=== PATIENT | female | born 1975 | race Caucasian/White ===

== ENCOUNTER → 2017-10-02 10:21 | Outpatient (CLI) | payer OTHER, SELFPAY ==
[2017-10-02 09:58] VITALS: BP 126/82; BMI 29.2
--- NOTE | 2017-10-02 10:28 | RAD_ITS ---
STUDY: X-RAY - RIGHT ANKLE REASON FOR EXAM: Female, 42 years old. Pain following injury. TECHNIQUE: 3 view(s) of the ankle. COMPARISON: Comparison is made with prior study dated September 05, 2017. FINDINGS: Normal visualized distal tibia and fibula. Normal medial and lateral malleoli. Normal tibiotalar articulation and ankle mortise. Normal visualized talus and calcaneus. The visualized subtalar, talonavicular, calcaneocuboid and tarsal articulations are normal. Lateral soft tissue swelling. RAD/Ankle min 3 Views IMPRESSION: Lateral soft tissue swelling. Electronically Signed: Srinivasa Tomas MD at 15:34 EST Tel [phone], Service support ,
== END ==
PROVIDERS: Family Provider Internal Medicine; PCP Internal Medicine; Visit Provider Physician Assistant Surgical
DX: S93.401A Sprain of unspecified ligament of right ankle, initial encounter (principal); X58.XXXA Exposure to other specified factors, initial encounter
CPT/HCPCS: 73610

== ENCOUNTER 2018-08-07 09:21 | Emergency (ER) | payer BC, SELFPAY ==
[2017-10-02 09:58] VITALS: BMI 29.2
[2018-08-07 09:22] VITALS: BP 126/82; PULSE 81; RESP 16; TEMP 36.4; O2SAT 100; BMI 29.6
--- NOTE | 2018-08-07 09:36 | CT_ITS ---
STUDY: CT BRAIN WITHOUT CONTRAST REASON FOR EXAM: Female, 43 years old. History of fall. History of prior brain surgery for AVM repair. RADIATION DOSAGE (If Supplied By Facility): CTDIvol = ( 44.99 ) mGy, DLP = ( 745.49 ) mGycm TECHNIQUE: Transaxial CT imaging of the brain was performed without administration of intravenous contrast material. Individualized dose optimization techniques were used for this CT. COMPARISON: None. FINDINGS: Normal soft tissue structures. The patient is status post right temporoparietal craniotomy. Normal size ventricles and extra-axial spaces for the patient's age. Focal encephalomalacia is seen in the right temporal parietal lobe in keeping with history of prior surgery. Normal basal ganglia and thalami. Normal brainstem. Normal cerebellum. There is no intracranial hemorrhage. There are no findings of an acute ischemic infarction. Normal visualized paranasal sinuses. CT/Brain/Head without Contrast IMPRESSION: Status post right temporoparietal craniotomy with evidence of encephalomalacia at the operative site. No acute abnormality is seen. Electronically Signed: Srinivasa Tomas MD at 10:22 EST Tel [phone], Service support ,
--- NOTE | 2018-08-07 09:38 | ED.VISSUMM ---
- ER Visit Summary Date of Service: 08/07/18 Chief Complaint: [] Fall about 4 days ago persistent headache History of Present Illness: The patient is a 43 F [] she reports she inadvertently slipped and fell struck the back of her head about 4 5 days ago she had a sense of being days no obvious LOC, no change in vision no neck pain chest pain abdominal pain #6 paresthesias This persisted having pain to the back of her head and a mild headache, she has a prior history for [employer] AVM surgery and clipping years ago she is concerned about all the above she otherwise has no complaints Physical Examination: [] 130/80 afebrile General, no distress resting comfortably HEENT is generally unremarkable The neck is supple no adenopathy Cardiovascular, regular rate and rhythm Lungs, clear bilateral Abdomen, soft nontender Extremities, no clubbing cyanosis or edema Neurologic, awake alert answering questions appropriately moving all 4 extremities Long conversation with the patient she has this persistent headache since the fall a few days ago her prior [employer] surgery, given all of that CT head is obtained she does not wish any for pain Test Results: [] Emergency Department Course and Treatment: [] CT is negative for anything acute please see that report this time she will follow-up with her doctors and return for change in symptoms Treatment Plan: [] Disposition: [] Home stable Impression: [] Fall with persistent headache This note was generated with [employer] dictation software. It may contain incorrect words, spelling, and punctuation that were not noted in review of the chart prior to signing ED Disposition - Plan for ED Patient: Chief Complaint: Head Injury Referrals: Nika Hernandez MD [Primary Care Provider] -
--- NOTE | 2018-08-07 10:25 | ED.DEP ---
ED Disposition - Plan for ED Patient: Chief Complaint: Head Injury Instructions: ED Concussion, ED Head Injury Closed Referrals: Nika eHrnandez MD [Primary Care Provider] - Ronnie Vasquez MD [STAFF PHYSICIAN] -
[2018-08-07 11:04] VITALS: BP 122/74; PULSE 61; RESP 14; O2SAT 100
--- OUTSIDE RECORDS SUMMARY | 2018-09-23 12:00 | XMS RPT_ITS ---
:1975 Author Organization OHIP Care Team Providers Name Role Phone ARMANDO ROJAS ([facility]) Attending Unavailable ARMANDO ROJAS ([facility]) Attending Unavailable ARMANDO ROJAS ([facility]) Referring Unavailable DmitryJaneth Attending Unavailable DmitryJaneth sainz Attending Unavailable DmitryJaneth Attending Unavailable Ganta, Nika Primary Care Unavailable Barb Carbajal Attending Unavailable Mario Matos Attending Unavailable Ganta, Nika Referring Unavailable Ganta, Nika Primary Care Unavailable Mario Matos Attending Unavailable Ganta, Nika Primary Care Unavailable PROBLEMS PROBLEMS DATE TYPE CONDITION / CODE ATTENDING STATUS SOURCE 10/23/2017 Unknown S93.401A - Sprain Mario Matos Active [facility] of unspecified Community ligament of right Hospital ankle, initial Repository encounter / S93.401A(ICD-10) 09/24/2017 Active Unknown / ARMANDO ROJAS Active [facility] UNK(Unknown) ([facility]) Main [place] Repository PROCEDURES PROCEDURES No Procedure Records FoundRESULTS RESULTS EMERGENCY DEPARTMENT Observed: 08/07/2018 Status: F Source: [place] SUMMARY 5:10 PM [facility] HOSPITAL REPOSITORY [facility] Medical Records Department [address] [facility] [place] [address] Emergency Department Summary 08/07/18 0938 MR#: [id number] Acct: [id number] Name: LORNA VASQUEZ Rep #: [id number] : 1975 43 From: Barb Carbajal MD PCP: Ganta MD,Nika Status: DEP ER - ER Visit Summary Date of Service: 08/07/18 Chief Complaint: [] Fall about 4 days ago persistent headache History of Present Illness: The patient is a 43 F [] she reports she inadvertently slipped and fell struck the back of her head about 4 5 days ago she had a sense of being days no obvious LOC, no change in vision no neck pain chest pain abdominal pain #6 paresthesias This persisted having pain to the back of her head and a mild headache, she has a prior history for [employer] AVM surgery and clipping years ago she is concerned about all the above she otherwise has no complaints Physical Examination: [] 130/80 afebrile General, no distress resting comfortably HEENT is generally unremarkable The neck is supple no adenopathy Cardiovascular, regular rate and rhythm Lungs, clear bilateral Abdomen, soft nontender Extremities, no clubbing cyanosis or edema Neurologic, awake alert answering questions appropriately moving all 4 extremities Long conversation with the patient she has this persistent headache since the fall a few days ago her prior [employer] surgery, given all of that CT head is obtained she does not wish any for pain Test Results: [] Emergency Department Course and Treatment: [] CT is negative for anything acute please see that report this time she will follow-up with her doctors and return for change in symptoms Treatment Plan: [] Disposition: [] Home stable Impression: [] Fall with persistent headache This note was generated with [place] [employer] dictation software. It may contain incorrect words, spelling, and punctuation that were not noted in review of the chart prior to signing ED Disposition - Plan for ED Patient: Chief Complaint: Head Injury Referrals: Nika Hernandez MD [Primary Care Provider] - What to do if you have Problems For any increased pain, shortness of breath, bleeding, nausea or vomiting, chest pain, or any unexpected problems, contact your Primary Care Provider. Call [facility] ([phone]) or report to the closest Emergency Room. Call 911 if necessary. 08/07/18 1710 <Electronically signed by Barb Carbajal MD> Date Barb Carbajal MD Cosigner Signature (If Indicated): Date CC: Nika Hernandez MD DISCHARGE INSTRUCTION Observed: 08/07/2018 Status: F Source: [place] 10:[address] [facility] Medical Records Department [address] [place] [address] Discharge Instruction 08/07/18 1025 MR#: [id number] Acct: [id number] Name: LORNA VASQUEZ Rep #: [id number] : 1975 43 From: Barb Carbajal MD PCP: Nika Hernandez MD Status: REG ER ED Disposition - Plan for ED Patient: Chief Complaint: Head Injury Instructions: ED Concussion, ED Head Injury Closed Referrals: Nika Hernandez MD [Primary Care Provider] - Ronnie Vasquez MD [STAFF PHYSICIAN] - What to do if you have Problems For any increased pain, shortness of breath, bleeding, nausea or vomiting, chest pain, or any unexpected problems, contact your Primary Care Provider. Call [facility] ([phone]) or report to the closest Emergency Room. Call 911 if necessary. 08/07/18 1026 <Electronically signed by Barb Carbajal MD> Date Barb Carbajal MD Cosigner Signature (If Indicated): Date CC: Nika Hernandez MD BRAIN/HEAD WITHOUT Observed: 08/07/2018 Status: F Source: [place] CONTRAST 9:[address] [facility] Imaging Services [address] [place] [address] Brain/Head without Contrast MR#: [id number] Acct: [id number] Name: LORNA VASQUEZ Rep #: [id number] : 1975 F 43 From: Srinivasa Tomas MD PCP: Nika Hernandez MD Status: REG ER Study: Brain/Head without Contrast Date of Exam: 08/07/18 Exam# [id number] Ordering Dr: Barb Carbajal MD STUDY: CT BRAIN WITHOUT CONTRAST REASON FOR EXAM: Female, 43 years old. History of fall. History of prior brain surgery for AVM repair. RADIATION DOSAGE (If Supplied By Facility): CTDIvol = ( 44.99 ) mGy, DLP = ( 745.49 ) mGycm TECHNIQUE: Transaxial CT imaging of the brain was performed without administration of intravenous contrast material. Individualized dose optimization techniques were used for this CT. COMPARISON: None. FINDINGS: Normal soft tissue structures. The patient is status post right temporoparietal craniotomy. Normal size ventricles and extra-axial spaces for the patient's age. Focal encephalomalacia is seen in the right temporal parietal lobe in keeping with history of prior surgery. Normal basal ganglia and thalami. Normal brainstem. Normal cerebellum. There is no intracranial hemorrhage. There are no findings of an acute ischemic infarction. Normal visualized paranasal sinuses. CT/Brain/Head without Contrast IMPRESSION: Status post right temporoparietal craniotomy with evidence of encephalomalacia at the operative site. No acute abnormality is seen. Electronically Signed: Srinivasa Tomas MD at 10:22 EST Tel [phone], Service support , CC: MD Beti Carbajal; Nika Hernandez MD Logistic Specialist: Signed PROGRESS Observed: 03/15/2018 Status: COMPLETED Source: [place] 10:13 AM [facility] [place] REPOSITORY HNO ID: [id number] Author: Armando Rojas Service: (none) Author Type: Nurse Practitioner Type: Progress Notes Filed: 03/15/2018 11:13 AM Note Text: CC: Patient presents with: Recheck: Medication follow up HPI Lorna VASQUEZ is a 42 year old female who presents today for review of medical conditions and medication refills. Depression: Patient reports doing well on current dose of Effexor without side effects. Reports mood is stable. Denies any depressed mood, changes in sleep or appetite or SI/HI. Seizures: Long-term management with Dilantin. No recent seizure activity. Bug bite? Noted near umbilicus 4x days ago. Reports mild erythema and ittching. Reports possible fever, not measured with associated URI symptoms including sinus congestion and rhinorrhea. Denies any warmth or drainage from site. Also notes possible ingrown hair to right groin for the same duration, reports mild discomfort and erythema. REVIEW OF SYSTEMS General: no fevers, no chills, no night sweats, no change in appetite, no change in energy and no significant changes in weight Skin: See HPI HEENT: no frequent or significant headaches, no changes in hearing, no nose bleeds, no sinus or nasal problems Neck: no pain and no swelling Respiratory: no cough, no wheezing, no shortness of breath, no hemoptysis Cardiovascular: no chest pain, no chest pressure, no palpitations and no swelling GI: No nausea, vomiting, or diarrhea : No history of dysuria, frequency or incontinence Endocrine: no fatigue, no weight gain, no weight loss, no hair loss, no dry skin, no cold intolerance, no heat intolerance, no neck pain/pressure, no polyuria, no polyphagia and no polydipsia Neurologic: No headache, weakness, numbness, tingling, neck stiffness, tremor, vertigo, dizziness, memory loss, syncope. PAST MEDICAL HISTORY Diagnosis Date - AVM (arteriovenous malformation) brain - Seizure (HCC) PAST SURGICAL HISTORY Procedure Laterality Date - BRAIN SURGERY HX AVM - TONSILLECTOMY HX ALLERGIES Patient has no known allergies. MEDICATIONS venlafaxine ER (EFFEXOR XR) 75 mg 24 hr capsule Take 1 capsule by mouth once daily. Needs appointment for further refills Ayftkwsrqsmwscx-Ptabgkglf-SX (BROMFED DM) 2-30-10 mg/5 mL syrup Take 5 mL by mouth four times daily as needed. phenytoin ER (DILANTIN) 100 mg ER capsule Take 4 capsules by mouth once daily. venlafaxine XR (EFFEXOR XR) 150 mg 24 hr capsule Take 1 capsule by mouth once daily. FAMILY HISTORY Problem Relation Age of Onset - Heart Paternal Grandmother - Ischemic Heart Disease Maternal Grandfather - Heart Maternal Grandmother - Prostate Cancer Paternal Grandfather Social History Substance Use Topics - Smoking status: Never Smoker - Smokeless tobacco: Never Used - Alcohol use No PHYSICAL EXAM BP 118/78 Pulse 90 Temp 36.8 ?C (98.3 ?F) (Temporal Artery) Resp 16 Wt 86.2 kg (190 lb) SpO2 100% BMI 29.76 kg/m? General Appearance: well appearing, in no acute distress, alert Pysch: mood and affect broad and appropriate Skin: right groin: follicular erythema with mild ecchymosis. Mild tenderness noted. No fluctuance or active drainage Abdomen: x2 erythematous papules proximal to the umbilicus. No drainage or evidence of infection Head: normocephalic, atraumatic Eyes: conjunctiva pink and moist, no icterus, sclera white, non-injected Ears: external ears normal to inspection and palpation, canals clear, R TM: serous effusion, L TM: serous effusion Oropharynx: Positive for mild oropharyngeal erythema Lungs: Lungs clear to auscultation. No wheezing, rhonchi, rales Heart: RRR without murmur, gallop, or rubs. No ectopy Bilateral Lower Extremities: No deformities, edema, skin discoloration, clubbing or cyanosis. Good capillary refill. , Pulses: 2+ DTAP,TDAP,TD(1 - Tdap) due on 1992 MAMMOGRAM due on 11/03/2016 INFLUENZA(1) due on 04/27/2018 PAP EVERY 5 YEARS due on 04/08/2019 HPV EVERY 5 YEARS due on 04/08/2019 ASSESSMENT/PLAN: 1. Recurrent major depression in partial remission (HCC) - ICD9: 296.35, ICD10: F33.41 (primary diagnosis) - Stable - Continue Effexor - Follow up in 1 year, sooner for new or worsening symptoms 2. Seizures (HCC) - ICD9: 780.39, ICD10: R56.9 - Stable - PHENYTOIN/DILANTIN - COMP METABOLIC PANEL - Follow up in 1 year, sooner for new or worsening symptoms 3. Folliculitis - ICD9: 704.8, ICD10: L73.9 - SULFAMETHOXAZOLE 800 MG-TRIMETHOPRIM 160 MG TABLET 4. Insect bite, initial encounter - ICD9: 919.4, E906.4, ICD10: W57.XXXA - SULFAMETHOXAZOLE 800 MG-TRIMETHOPRIM 160 MG TABLET 5. Screening mammogram, encounter for - ICD9: V76.12, ICD10: Z12.31 - Encouraged monthly BSE - Follow up for annual exam in one year. - [facility] SCREEN[facility] Armando Rojas APRN.CNP Prescription instructions reviewed with patient as applicable. Potential red flag symptoms discussed with the patient. Reviewed appropriate action plan to take if red flag symptoms occur. Patient agreeable to treatment plan. CNOV Observed: 03/15/2018 Status: COMPLETED Source: [place] 10:00 AM [facility] REPOSITORY Office Visit (INTMWS) LORNA VASQUEZ ([id number]) 1975 F [facility] Date Time Provider Department 03/15/18 10:00 AM ARMANDO ROJAS ([facility]) INTMWS During your visit today, we recorded the following information about you: Temperature Pulse Respiration Blood pressure 98.3 degrees 90/minute 16/minute 118/78 Weight 86.2 kg Armando Rojas APRN.CNP 03/15/2018 11:13 AM Signed CC: Patient presents with: Recheck: Medication follow up HPI Lorna WESTChel is a 42 year old female who presents today for review of medical conditions and medication refills. Depression: Patient reports doing well on current dose of Effexor without side effects. Reports mood is stable. Denies any depressed mood, changes in sleep or appetite or SI/HI. Seizures: Long-term management with Dilantin. No recent seizure activity. Bug bite? Noted near umbilicus 4x days ago. Reports mild erythema and ittching. Reports possible fever, not measured with associated URI symptoms including sinus congestion and rhinorrhea. Denies any warmth or drainage from site. Also notes possible ingrown hair to right groin for the same duration, reports mild discomfort and erythema. REVIEW OF SYSTEMS General: no fevers, no chills, no night sweats, no change in appetite, no change in energy and no significant changes in weight Skin: See HPI HEENT: no frequent or significant headaches, no changes in hearing, no nose bleeds, no sinus or nasal problems Neck: no pain and no swelling Respiratory: no cough, no wheezing, no shortness of breath, no hemoptysis Cardiovascular: no chest pain, no chest pressure, no palpitations and no swelling GI: No nausea, vomiting, or diarrhea : No history of dysuria, frequency or incontinence Endocrine: no fatigue, no weight gain, no weight loss, no hair loss, no dry skin, no cold intolerance, no heat intolerance, no neck pain/pressure, no polyuria, no polyphagia and no polydipsia Neurologic: No headache, weakness, numbness, tingling, neck stiffness, tremor, vertigo, dizziness, memory loss, syncope. PAST MEDICAL HISTORY Diagnosis Date - AVM (arteriovenous malformation) brain - Seizure (HCC) PAST SURGICAL HISTORY Procedure Laterality Date - BRAIN SURGERY HX AVM - TONSILLECTOMY HX ALLERGIES Patient has no known allergies. MEDICATIONS venlafaxine ER (EFFEXOR XR) 75 mg 24 hr capsule Take 1 capsule by mouth once daily. Needs appointment for further refills Ojkbctoxiaszpxx-Xlrgicqwj-OU (BROMFED DM) 2-30-10 mg/5 mL syrup Take 5 mL by mouth four times daily as needed. phenytoin ER (DILANTIN) 100 mg ER capsule Take 4 capsules by mouth once daily. venlafaxine XR (EFFEXOR XR) 150 mg 24 hr capsule Take 1 capsule by mouth once daily. FAMILY HISTORY Problem Relation Age of Onset - Heart Paternal Grandmother - Ischemic Heart Disease Maternal Grandfather - Heart Maternal Grandmother - Prostate Cancer Paternal Grandfather Social History Substance Use Topics - Smoking status: Never Smoker - Smokeless tobacco: Never Used - Alcohol use No PHYSICAL EXAM BP 118/78 Pulse 90 Temp 36.8 ?C (98.3 ?F) (Temporal Artery) Resp 16 Wt 86.2 kg (190 lb) SpO2 100% BMI 29.76 kg/m? General Appearance: well appearing, in no acute distress, alert Pysch: mood and affect broad and appropriate Skin: right groin: follicular erythema with mild ecchymosis. Mild tenderness noted. No fluctuance or active drainage Abdomen: x2 erythematous papules proximal to the umbilicus. No drainage or evidence of infection Head: normocephalic, atraumatic Eyes: conjunctiva pink and moist, no icterus, sclera white, non-injected Ears: external ears normal to inspection and palpation, canals clear, R TM: serous effusion, L TM: serous effusion Oropharynx: Positive for mild oropharyngeal erythema Lungs: Lungs clear to auscultation. No wheezing, rhonchi, rales Heart: RRR without murmur, gallop, or rubs. No ectopy Bilateral Lower Extremities: No deformities, edema, skin discoloration, clubbing or cyanosis. Good capillary refill. , Pulses: 2+ DTAP,TDAP,TD(1 - Tdap) due on 1992 MAMMOGRAM due on 11/03/2016 INFLUENZA(1) due on 04/27/2018 PAP EVERY 5 YEARS due on 04/08/2019 HPV EVERY 5 YEARS due on 04/08/2019 ASSESSMENT/PLAN: 1. Recurrent major depression in partial remission (HCC) - ICD9: 296.35, ICD10: F33.41 (primary diagnosis) - Stable - Continue Effexor - Follow up in 1 year, sooner for new or worsening symptoms 2. Seizures (HCC) - ICD9: 780.39, ICD10: R56.9 - Stable - PHENYTOIN/DILANTIN - COMP METABOLIC PANEL - Follow up in 1 year, sooner for new or worsening symptoms 3. Folliculitis - ICD9: 704.8, ICD10: L73.9 - SULFAMETHOXAZOLE 800 MG-TRIMETHOPRIM 160 MG TABLET 4. Insect bite, initial encounter - ICD9: 919.4, E906.4, ICD10: W57.XXXA - SULFAMETHOXAZOLE 800 MG-TRIMETHOPRIM 160 MG TABLET 5. Screening mammogram, encounter for - ICD9: V76.12, ICD10: Z12.31 - Encouraged monthly BSE - Follow up for annual exam in one year. - [facility] SCREENING Armando Rojas APRN.ELECTRICIAN CHIEF Prescription instructions reviewed with patient as applicable. Potential red flag symptoms discussed with the patient. Reviewed appropriate action plan to take if red flag symptoms occur. Patient agreeable to treatment plan. Armando Rojas APRN.ELECTRICIAN CHIEF 03/15/2018 10:33 AM Addendum Okay to apply hydrocortisone cream to bug bite on abdomen may also apply Aquaphor anti-itch. Please remember to schedule annual appointment for 1 year from now. Referring Provider: ARMANDO ROJAS ([facility]) [[id number]] Allergies As of Date: 03/15/2018 (No Known Allergies) Date Reviewed: 03/15/2018 Reviewed by: Hyun Suárez Ma - Fully Assessed Reason for Visit: Recheck [92] Cmt: Medication follow up Primary Visit Diagnosis:Recurrent major depression in partial remission (HCC) [F33.41] Other Visit Diagnoses:Seizures (HCC) [R56.9] Folliculitis [L73.9] Insect bite, initial encounter [W57.XXXA] Screening mammogram, encounter for [Z12.31] Order(s):venlafaxine ER (EFFEXOR XR) 75 mg 24 hr capsuleTake 1 capsule by mouth once daily. Needs appointment for further refillsDisp: 30 capsuleRfl: 5 YARED SCREENING [[id number]] Order #: [id number] FUTURE PHENYTOIN/DILANTIN [SQPHT] Order #: [id number] FUTURE COMP METABOLIC PANEL [SQCMP] Order #: [id number] FUTURE fluticasone (FLONASE) 50 mcg/actuation nasal sprayUse 1-2 Sprays in each nostril once daily. Rinse mouth after use.Disp: 1 BottleRfl: 1 sulfamethoxazole-trimethoprim (BACTRIM DS,SEPTRA DS) 800-160 mg per tabletTake 1 tablet by mouth twice daily for 5 days.Disp: 10 tabletRfl: 0 Prescriptions as of 03/15/2018 Sig: VENLAFAXINE ER 75 MG CAPSULE,* Take 1 capsule by mouth once * FLUTICASONE 50 MCG/ACTUATION * Use 1-2 Sprays in each nostri* SULFAMETHOXAZOLE 800 MG-TRIME* Take 1 tablet by mouth twice * BROMPHENIRAMINE-PSEUDOEPHEDRI* Take 5 mL by mouth four times* PHENYTOIN SODIUM EXTENDED 100* Take 4 capsules by mouth once* Problem List As Of Date 03/15/2018 Noted Resolved Seizures (HCC) [R56.9] INVALID FOR* More... Recurrent major depression in partial remission*INVALID FOR* More... Attention deficit disorder of adult [F98.8] INVALID FOR* More... Other instructions from your clinician: Okay to apply hydrocortisone cream to bug bite on abdomen may also apply Aquaphor anti-itch. Please remember to schedule annual appointment for 1 year from now. Prescriptions ordered this encounter Disp Refills Start End VENLAFAXINE ER 75 MG CAPSULE,EXTENDE* 30 c* 5 03/15/2018 Route: ORAL Sig: Take 1 capsule by mouth once daily. Needs appointment for further refills FLUTICASONE 50 MCG/ACTUATION NASAL S* 1 Pedro* 1 03/15/2018 Route: EACH NOSTRIL Sig: Use 1-2 Sprays in each nostril once daily. Rinse mouth after use. SULFAMETHOXAZOLE 800 MG-TRIMETHOPRIM* 10 t* 0 03/15/2018 03/20/2018 Route: ORAL Sig: Take 1 tablet by mouth twice daily for 5 days. Medications Discontinued During This Encounter venlafaxine XR (EFFEXOR XR) 150 mg 2* 90 c* 1 11/15/2016 03/15/2018 Route: ORAL Sig: Take 1 capsule by mouth once daily. Disc: Reason for discontinue is not on file. venlafaxine ER (EFFEXOR XR) 75 mg 24* 14 c* 0 03/01/2018 03/15/2018 Route: ORAL Sig: Take 1 capsule by mouth once daily. Needs appointment for further refills Disc: Reason for discontinue is not on file. Encounter Status:Closed by ARMANDO ROJAS CNP on 03/15/18 URGENT CARE VISIT Observed: 10/05/2017 Status: F Source: [place] REPORT 7:25 AM [facility] [place] [address] [place] [id number] OFFICE VISIT Date of Service: 10/02/17 MR#: [id number] Acct: [id number] Name: ELANACHESTERLORNA Milligan Rep #: [id number] : 1975 Provider: Mario CARRANZA Age/Sex: 42/F Location: [email or web address] Status: Signed Intake Vital Signs10/02/17 Height 5 ft 8 in Intake Visit Reasons: RT ANKLE INJURY/ [employer] Allergies No Known Allergies Allergy (Verified 10/02/17 09:51) Medications Phenytoin Na [Dilantin] 400 mg PO DAILY 12/27/15 [History Confirmed 10/02/17] venlafaxine 25 mg tablet 25 mg PO TID 10/02/17 [History Confirmed 10/02/17] PFSH Medical History AVM (arteriovenous malformation) (Acute) Seizures (Acute) Surgical History H/O brain surgery (Acute) Social History Smoking Status: Never smoker alcohol intake: never HPI HPI Details: LORNA VASQUEZ, is a 42 F who presents to the office today for follow-up of a work-related injury which occurred on 09/05/2017. Patient states that on that date she rolled her right ankle after missing a step while at work. She was initially evaluated at [facility] ED and found to have a right ankle sprain. Patient states that she continues to have pain and swelling to the ankle and is concerned that there may be an occult fracture. She does also report that she has not been using the ankle splint that was given to her due to discomfort. She is able to do her job while at work however does have to take breaks intermittently from going up and down stairs due to the discomfort. She denies any numbness or tingling. She continues to have full range of motion and sensation. No other associated symptoms or alleviating/aggravating factors. ROS Const Constitutional: No chills, fever(s), fatigue or abnormal sleep pattern Resp Respiratory: No shortness of breath or chest congestion Cardio Cardiology: No chest pain at rest, chest pain with exertion or shortness of breath Musc Musculoskeletal: Positive for joint pain and joint swelling; no back pain, abnormal walking or limited range of motion Skin Skin: No wounds or lesions Neuro Neurology: No behavioral changes, confusion or abnormal walking Psych Psychiatric: No behavioral changes, No confusion, No abnormal sleep pattern Endo Endocrine: No fatigue Exam Const General: cooperative, healthy appearing [facility] Head: normocephalic, atraumatic Ears: hearing grossly normal bilaterally Face and sinus: face symmetric Eyes General: appearance normal, both eyes and all related structures Pupils: PERRL Resp Effort AND Inspection: normal respiratory effort Auscultation: Bilateral: Clear to Auscultation Cardio Rate: regular rate Rhythm: regular rhythm Heart Sounds: S1 normal, S2 normal Musc Musculoskeletal: Yes joint tenderness Skin General: no rashes or lesions noted Neuro General: alert, oriented x3, CN's II-XI intact bilaterally Motor: muscle tone normal throughout, strength 5/5 throughout Sensory Exam: no sensory deficits noted Extrem Other: Mild right ankle swelling with full range of motion, strength and sensation. No tenderness to palpation of the epicondyles or ecchymosis. Psych Appearance: grossly normal Mental Status: mental status grossly normal Assessment AND Plan Problems 1. Sprain of right ankle, unspecified ligament, initial encounter S93.401A Status Acute Plan X-ray of the right ankle reviewed by myself and later confirmed by radiologist to have no acute fracture. [employer] 14 filled out releasing patient back to work today with restrictions of patient limited walking and stair climbing. These limitations are in effect through 10/16/2017. Patient is released from restrictions and the not clinic after that date. Patient advised to continue with range of motion exercises of the ankle and ice for 20 minutes 3 times daily. Patient verbalized understanding of all the above. This note was generated with [employer] dictation software. It may contain incorrect words, spelling, and punctuation that were not noted in checking the note before signing. Orders Orders: Coding Level of Care Code Off vis,new,level 4 Diagnoses Sprain of right ankle, unspecified ligament, initial encounter S93.401A Encounter type: initial encounter Involved ligament of ankle: unspecified ligament 10/05/17 0725 <Electronically signed by Mario CARRANZA> Date Mario CARRANZA Cosigner Signature: Date (if applicable) CC: ANKLE MIN 3 VIEWS Observed: 10/02/2017 Status: F Source: [place] 10:23 AM [facility] Imaging Services [facility] [place] [address] Ankle min 3 Views MR#: [id number] Acct: [id number] Name: LORNA VASQUEZ Rep #: [id number] : 1975 F 42 From: Srinivasa Tomas MD PCP: Nika Hernandez MD Status: REG CLI Study: Ankle min 3 Views Date of Exam: 10/02/17 Exam# [id number] Ordering Dr: Mario Matos STUDY: X-RAY - RIGHT ANKLE REASON FOR EXAM: Female, 42 years old. Pain following injury. TECHNIQUE: 3 view(s) of the ankle. COMPARISON: Comparison is made with prior study dated September 05, 2017. FINDINGS: Normal visualized distal tibia and fibula. Normal medial and lateral malleoli. Normal tibiotalar articulation and ankle mortise. Normal visualized talus and calcaneus. The visualized subtalar, talonavicular, calcaneocuboid and tarsal articulations are normal. Lateral soft tissue swelling. RAD/Ankle min 3 Views IMPRESSION: Lateral soft tissue swelling. Electronically Signed: Srinivasa Tomas MD at 15:34 EST Tel [phone], Service support , CC: Nika Hernandez MD; Mario CARRANZA Logistic Specialist: Signed FANNY Observed: 09/24/2017 Status: COMPLETED Source: [place] 10:00 AM [facility] REPOSITORY Office Visit (INTMWS) LORNA VASQUEZ ([id number]) 1975 F T Date Time Provider Department 09/24/17 10:00 AM ARMANDO ROJAS ([facility]) INTMWS During your visit today, we recorded the following information about you: Pulse Respiration Blood pressure Weight 64/minute 16/minute 122/70 85.7 kg Referring Provider: SELF [200] Allergies As of Date: 09/24/2017 (No Known Allergies) Date Reviewed: 09/24/2017 Reviewed by: Hyun Suárez Ma - Fully Assessed Reason for Visit: Ankle Pain [1036] Cmt: R ankle pain x 3 weeks Primary Visit Diagnosis:APPOINTMENT CANCELLED Prescriptions as of 09/24/2017 Sig: BROMPHENIRAMINE-PSEUDOEPHEDRI* Take 5 mL by mouth four times* PHENYTOIN SODIUM EXTENDED 100* Take 4 capsules by mouth once* VENLAFAXINE ER 75 MG CAPSULE,* Take 1 capsule by mouth once * VENLAFAXINE ER 150 MG CAPSULE* Take 1 capsule by mouth once * Problem List As Of Date 09/24/2017 Noted Resolved Seizures (HCC) [R56.9] INVALID FOR* More... Recurrent major depression in partial remission*INVALID FOR* More... Attention deficit disorder of adult [F98.8] INVALID FOR* More... Encounter Status:Closed by ARMANDO ROJAS CNP on 09/25/17 ALLERGIES ALLERGIES DATE TYPE / CODE NAME / CODE REACTION SEVERITY SOURCE 08/07/2018 [address] No Known Unknown [facility] Allergy/416 Allergies/A12680 Hospital 059864(SNOM 0388(RXNORM) Repository ED CT) Drug NO KNOWN [facility] Class/41441 ALLERGIES Main [place] 1003(SNOMED Repository CT) ENCOUNTERS ENCOUNTERS ADMIT/DISCHARGE ACCOUNT NUMBER ADMITTING ENCOUNTER LOCATION SOURCE CLASS 09/06/2018 [id number] Ambulatory [facility] :[facility] Repository 08/23/[id number] [facility] :[facility] Repository 08/09/[id number] [facility] :[facility] Repository 08/07/2018/08/07/20 [id number] Emergency [address] ding:ED Repository 03/15/2018/03/18/20 [id number] Ambulatory [address] Main [place] Repository 10/02/2017 [id number] Ambulatory [facility] ding:[facility]PRAD Repository 10/02/2017/10/02/19 [id number] Ambulatory BMSBuilding: [address] Repository 09/24/2017 [id number] Ambulatory [facility] Repository PAYERS PAYERS ENCOUNTER GUARANTOR PAYER SUBSCRIBER SOURCE 08/07/2018 BRANDEE Primary LORNA Du [id number] Insurance:ANTHEMPolic WEATHERHOLTDOB: [address], Number: [id number] [place] [address]Ieo: [id number] Repository Date:[id number] [address], [place] [address]FJ: 08/07/2018 Secondary NOT GIVENUNK Doug[place] Insurance:SELF PAY [facility] Number: Effective Repository Date:2018-08-07 10/02/2017 Brandee Primary LORNA Du [id number] Insurance:OBWC WEATHERHOLTDOB: [facility] [id number] Number: Repository [id number]: [phone] [id number] [phone] () Date:9394-26-10[address], [place] [address]HV: 10/02/2017 Secondary NOT GIVENUNK [place] Insurance:SELF PAY [facility] Number: Effective Repository Date:2017-10-02 10/02/2017 Brnadee Du [id number] Insurance:OBWC WEATHERHOLTDOB: [facility] [id number] Number: Repository [id number]: [phone] [id number] [phone] () Date:[id number], [place] [address]SP: 10/02/2017 Secondary LORNA Dougie Insurance:CARESOURCE WEATHERHOLTDOB: [id number] Number: Repository [id number] Date:6147-11-22[address] [address]CT: 10/02/2017 Tertiary NOT GIVENUNK [place] Insurance:SELF PAY [facility] Number: Effective Repository Date:2017-10-02
== END 2018-08-07 11:05 | disposition home or self-care (01) ==
PROVIDERS: Emergency Provider Emergency Medicine; Family Provider Internal Medicine; PCP Internal Medicine
DX: R51 Headache (principal); W01.0XXA Fall on same level from slipping, tripping and stumbling without subsequent striking against object, initial encounter; Y93.9 Activity, unspecified; Y92.9 Unspecified place or not applicable
CPT/HCPCS: 70450; 99282

== ENCOUNTER 2021-05-30 13:09 | Emergency (ER) | payer OTHER, SELFPAY ==
[2021-05-30 13:11] VITALS: BP 121/93; PULSE 90; RESP 18; TEMP 36.6; O2SAT 97; BMI 33.1
[2021-05-30 14:38] LABS: Red Blood Cells-Urine 0 SEEN /hpf (0-5); White Blood Cells 0 SEEN /hpf (0-5)
[2021-05-30 14:41] LABS: Color, Urine Yellow (Yellow); Glucose, Dipstick Normal (Normal); Ketone-Dipstick 5 mg/dl (Negative); Leukocyte Esterase-Dipstick Negative /ul (Negative); Nitrite-Dipstick Negative (Negative); Occult Blood-Urine Negative /ul (Negative); Protein-Dipstick Negative (Negative); Specific Gravity, Urine 1.025 (1.002-1.030); Urine Bilirubin Dipstick Negative (Negative); Urine Clarity Sl. Cloudy (Clear); Urine Urobilinogen Normal (Normal)
[2021-05-30 14:48] LABS: Bacteria RARE /hpf (None Seen); Mucous, Urine 1+ /hpf (<or=2+); Squamous Epithelial Cells - UA 0-5 SEEN /hpf (5-10)
[2021-05-30 15:32] LABS: Absolute Lymphocyte Count 2.37 X10^3/uL (0.83-4.51); Absolute Neutrophil Count 7.2 X10^3/uL (2.0-7.7); Basophil# 0.03 X10^3/uL; Basophil% 0.3 % (0-1); Eosinophil# 0.03 X10^3/uL; Eosinophils% 0.3 % (0-5); Hematocrit 41.8 % (37-47); Hemoglobin 13.8 g/dL (12.0-15.0); Lymphocyte # 2.37 X10^3/ul (0.83-4.51); Lymphocyte % 22.7 % (19-41); Mean Corpuscular Hgb 29.6 pg (27.0-32.0); Mean Corpuscular Volume 89.7 fL (81-99); Mean Platelet Vol. 9.7 fl (6.2-12.0); Monocyte# 0.77 X10^3/uL; Monocyte% 7.4 % (0-10); NRBC Flagged by Analyzer 0 % (0-5); Neutrophil # 7.18 X10^3/uL (2.7-7.7); Neutrophil % 68.7 % (47-70); Platelet Count 299 K/mm3 (150-450); RBC Distribution Width CV 13.3 % (11.6-14.6); RBC Distribution Width SD 43.6 fl (35.1-43.9); Red Blood Count 4.66 M/mm3 (4.2-5.4); White Blood Count 10.4 K/mm3 (4.4-11.0)
[2021-05-30 16:00] LABS: Anion Gap 6 (5-15); BUN 18 mg/dL (7-18); BUN/Creat Ratio 26.3 RATIO (10-20); Chloride 101 mmol/L (98-107); Creatinine, Serum 0.68 mg/dL (0.55-1.02); EST Glomerular Filtration Rate 97 mL/min (>60); Est Glom Filt Rate - Afr Amer 118 mL/min (>60); Estimated Creatinine Clearance 102.06 ml/min; Glucose 89 mg/dL (74-106); Potassium 4.2 mmol/L (3.5-5.1); Sodium Level 135 mmol/L (136-145)
--- NOTE | 2021-05-30 17:38 | CT_ITS ---
STUDY: CT Abdomen And Pelvis W/ Contrast Injection 05/30/2021 6:33 PM REASON FOR EXAM: Female, 46 years old. ABDOMINAL PAIN RLQ pain TECHNIQUE: Transaxial images were obtained without oral contrast, and IV 100mL Isovue-300 intravenous contrast. Individualized dose optimization techniques were used for this CT. COMPARISON: None. FINDINGS: The visualized lung bases are unremarkable. The visualized portions of the heart are within normal limits. Normal liver. Normal gallbladder and extrahepatic biliary system. Normal spleen. Normal pancreas. Normal bilateral adrenal glands. No acute findings of the right kidney. No acute findings of the left kidney. Focal wall thickening of the antrum of stomach. This can suggest a gastritis. Normal small intestine. Stool throughout the colon. The appendix is visualized and appears normal. There are no acute findings of the abdominal aorta. Normal inferior vena cava. Subcentimeter mesenteric lymph nodes. Normal urinary bladder. There is a mass which extends into the endometrium of the right uterine horn. This is likely a fibroid. Normal abdominal wall. Normal osseous structures. IMPRESSION: (NOT LISTED IN ORDER OF SIGNIFICANCE) Fibroid uterus. The appendix is visualized and appears normal. Other findings as above. Electronically Signed: Ebenezer Evans MD at 18:36 EDT , Service support , CT/Abdomen/Pelvis W IV Cont ONLY
--- NOTE | 2021-05-30 17:39 | ED.VIS.GI ---
HPI HPI - GI History of Present Illness Chief Complaint: Abd Pain Informant: patient Narrative Narrative: Patient sent from urgent care for evaluation. Intermittent epigastric and lower abdominal pain for the past week. However increasing pain over 2 days primary in epigastric region. No vomiting. One loose stool today. Nonbloody. No abdominal surgery history. States pain epigastrics kept her up for 2 days. Does not worsen with foods. No previous similar symptoms in the past. 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 No anticoagulation medicines. Denies any urinary symptoms. Decreased p.o. intake. Prior similar symptoms: No PFSH PFSH Medical History AVM (arteriovenous malformation) Seizures Home Medications phenytoin sodium extended 400 mg PO DAILY 12/27/15 [History Last Taken Unknown] venlafaxine 25 mg tablet 25 mg PO TID 10/02/17 [History Last Taken Unknown] omeprazole 40 mg PO DAILY #30 cap 05/30/21 [Rx Last Taken Unknown] sucralfate [Carafate] 1 g PO BID #60 tab 05/30/21 [Rx Last Taken Unknown] Allergy/AdvReac Type Severity Reaction Status Date / Time No Known Allergies Allergy Verified 05/30/21 18:02 Surgical History H/O brain surgery Social History Smoking Status: Never smoker alcohol intake: never ROS ROS ED Constitutional Constitutional ED: Denies chills, fever(s) or sweats Eyes Eyes: Denies change in vision ENT ENT ED: Denies dysphagia or sore throat Cardiovascular Cardiovascular: Denies chest pain, leg edema, palpitations or racing heartbeat Respiratory/Chest Respiratory/Chest: Denies cough, dyspnea or dyspnea on exertion Gastrointestinal Gastrointestinal: Reports abdominal pain and diarrhea; Denies nausea or vomiting Genitourinary Genitourinary ED: Denies dysuria, hematuria or urinary frequency Musculoskeletal Musculoskeletal: Denies back pain, extremity pain or neck pain Integumentary Denies rash or wounds Neurologic Neurologic: Denies headache(s), paresthesias or weakness EXAM Physical Exam Const Vital Signs: 05/30/21 13:11 05/30/21 18:21 05/30/21 19:31 Temperature 97.8 F 98.9 F Temperature Source Temporal Oral Pulse Rate 90 74 75 Respiratory Rate 18 16 18 Blood Pressure 121/93 H 124/92 H 120/86 H Blood Pressure Mean 102 102 Pulse Ox 97 99 99 Oxygen Delivery Method Room Air Room Air Positive well nourished and well developed General Appearance ED: well developed and NAD HEENT Reports dry mucous membranes HEENT Narrative: Mild dry mucosal membranes. normocephalic and atraumatic Mouth ED: Yes dry mucous membranes Mouth: dry mucous membranes Eyes PERRL, EOMs intact bilaterally and conjunctivae normal General Eye ED: Yes normal appearance of both eyes Neck no lymphadenopathy and supple General: Negative for tenderness Chest Wall Chest: Negative for tenderness Resp normal respiratory effort and normal air movement Effort and Inspection: symmetric chest movement; Negative for respiratory distress Cardio regular rate, regular rhythm and no murmurs Peripheral Pulses: pulses 2+ throughout GI normal to inspection, nondistended, normoactive bowel sounds GI Narrative: Mild tenderness epigastric and right lower quadrant. Negative Bianchi's. No guarding or rebound. Negative Rovsing's. Palpation: Negative for guarding or rebound tenderness present Back/Spine no CVA tenderness and no thoracic nor lumbar tenderness Extremity normal to inspection General Extremety ED: Negative for edema or tenderness General Extremity: Negative for edema Neuro oriented x3 and no sensory deficits noted Sensorium / Orientation: awake and alert Skin no rashes or lesions noted and no wounds MDM MDM MDM Narrative Medical decision making narrative: Patient is intermittent symptoms past week worsen over 2 days. Primary epigastric sent by urgent care on exam has right lower quadrant tenderness without guarding. Labs were initiated from triage white count normal kidney function normal. Lipase and liver enzymes added which was normal. Urine noted ketones. She was given IV fluids. CT scan notes a normal appendix. Noted thickening of the gastrum concerning for gastritis. Normal right upper quadrant results. Patient denies any bloody or tarry stools. She started on omeprazole and Carafate. She is given GI follow-up. All questions were answered. Lab Data Attestation: I reviewed the patient's lab results. Labs: Laboratory Results - last 24 hr 05/30/21 05/30/21 05/30/21 14:30 14:30 15:20 WBC 10.4 RBC 4.66 Hgb 13.8 Hct 41.8 MCV 89.7 MCH 29.6 MCHC 33.0 RDW Std Deviation 43.6 RDW Coeff of Hanh 13.3 Plt Count 299 MPV 9.7 Immature Gran % (Auto) 0.600 Neut % (Auto) 68.7 Lymph % (Auto) 22.7 Davidson % (Auto) 7.4 Eos % (Auto) 0.3 Baso % (Auto) 0.3 Absolute Neuts (auto) 7.2 Absolute Lymphs (auto) 2.37 Nucleated RBC % 0 Sodium Potassium Chloride Carbon Dioxide Anion Gap BUN Creatinine Estim Creat Clear Calc Est GFR (MDRD) Af Amer Est GFR (MDRD) Non-Af BUN/Creatinine Ratio Glucose Calcium Total Bilirubin Direct Bilirubin AST ALT Alkaline Phosphatase Total Protein Albumin Globulin Lipase Urine Color Yellow Urine Clarity Sl. Cloudy Urine pH 5.0 Ur Specific [place] 1.025 Urine Protein Negative Urine Glucose (UA) Normal Urine Ketones 5 H Urine Occult Blood Negative Urine Nitrite Negative Urine Bilirubin Negative Urine Urobilinogen Normal Ur Leukocyte Esterase Negative Urine RBC 0 SEEN Urine WBC 0 SEEN Ur Squamous Epith Cells 0-5 SEEN Urine Bacteria RARE Urine Mucus 1+ Urine Test Negative 05/30/21 05/30/21 15:20 15:20 WBC RBC Hgb Hct MCV MCH MCHC RDW Std Deviation RDW Coeff of Hanh Plt Count MPV Immature Gran % (Auto) Neut % (Auto) Lymph % (Auto) Davidson % (Auto) Eos % (Auto) Baso % (Auto) Absolute Neuts (auto) Absolute Lymphs (auto) Nucleated RBC % Sodium 135 L Potassium 4.2 Chloride 101 Carbon Dioxide 28.0 Anion Gap 6 BUN 18 Creatinine 0.68 Estim Creat Clear Calc 102.06 Est GFR (MDRD) Af Amer 118 Est GFR (MDRD) Non-Af 97 BUN/Creatinine Ratio 26.3 H Glucose 89 Calcium 9.0 Total Bilirubin 0.20 Direct Bilirubin 0.05 AST 34 ALT 31 Alkaline Phosphatase 116 Total Protein 8.7 H Albumin 3.8 Globulin 4.9 H Lipase 170 Urine Color Urine Clarity Urine pH Ur Specific [place] Urine Protein Urine Glucose (UA) Urine Ketones Urine Occult Blood Urine Nitrite Urine Bilirubin Urine Urobilinogen Ur Leukocyte Esterase Urine RBC Urine WBC Ur Squamous Epith Cells Urine Bacteria Urine Mucus Urine Test Radiography Diagnostic Testing: Radiology Impression Abdomen/Pelvis CT 05/30/21 17:38 Discharge Plan Triage Chief Complaint: Abd Pain ED Provider: Mathew Fernandez Dx/Rx/DC Orders Clinical Impression: Gastritis, Abdominal pain Instructions: Abdominal Pain, ED Gastritis (Adult) Prescriptions: New sucralfate [Carafate] 1 gram tablet 1 g PO BID Qty: 60 RF: 0 omeprazole 40 mg capsule,delayed release(DR/EC) 40 mg PO DAILY Qty: 30 RF: 0 No Action venlafaxine 25 mg tablet 25 mg PO TID RF: 0 phenytoin sodium extended 100 MG capsule 400 mg PO DAILY RF: 0 Primary Care Provider: Nika Hernandez Referrals: Nika Hernandez MD [Primary Care Provider] - Miguel Angel Castillo DO [STAFF PHYSICIAN] - 1 Week Disposition Disposition: Home, Self Care Discharge Date/Time: 05/30/21 19:32
[2021-05-30] MEDS: 0.9% Normal Saline 1,000 ML 1000 ML IV (17:57)
[2021-05-30] MEDS: Famotidine 200 MG/20 ML MDV 20 MG in 0.9% Normal Saline (Pres. free 8 ML 300 MG IV (17:57)
[2021-05-30 18:21] VITALS: BP 124/92; PULSE 74; RESP 16; TEMP 37.2; O2SAT 99
[2021-05-30 18:44] LABS: AST(SGOT) 34 U/L (15-37); Alanine Aminotransfer ALT/SGPT 31 U/L (13-56); Albumin, Serum 3.8 g/dL (3.2-5.0); Alkaline Phosphatase 116 U/L (45-117); Bilirubin, Direct 0.05 mg/dL (0.00-0.30); Globulin 4.9 g/dL (2.2-4.2); Lipase 170 U/L (73-393); Protein, Total 8.7 g/dL (6.4-8.2)
[2021-05-30 19:31] VITALS: BP 120/86; PULSE 75; RESP 18; O2SAT 99
[2021-05-30 19:31] LABS: Internal QC Validated? YES +Cl - CLEAR BKGD; Pregnancy, Urine Negative Negative
== END 2021-05-30 19:32 | disposition home or self-care (01) ==
PROVIDERS: Emergency Provider Emergency Medicine; PCP Internal Medicine
DX: K29.70 Gastritis, unspecified, without bleeding (principal); G40.909 Epilepsy, unspecified, not intractable, without status epilepticus; Z87.728 Personal history of other specified (corrected) congenital malformations of nervous system and sense organs; Z79.899 Other long term (current) drug therapy
CPT/HCPCS: 74177; 80048; 80076; 81001; 81025; 83690; 85025; 96361; 96374; 99284; J7030; Q9967; A4216; J3490

== ENCOUNTER 2024-10-31 12:19 | Day surgery (SDC) | payer OTHER, SELFPAY ==
[2024-10-31] VITALS (7 sets, daily range): BP systolic 111–122; BP diastolic 65–88; PULSE 70–82; RESP 16; TEMP 36.1–36.4; O2SAT 98–100; BMI 34.2
--- NOTE | 2024-10-31 12:44 | PRE.ANES_ITS ---
ASA Classification* ASA Classification ASA Classification: 2 Assessment & Plan Anesthesia* Anesthesia Assessment Anesthesia Assessment: Discussed sedation and/or anesthesia options, risks, benefits, and alternatives with patient/parents/legal guardian/POA. Questions invited. The patient/parents/legal guardian/POA seems to understand and agrees to proceed with anesthesia plan. Reviewed the physical assessment, medical history, allergy history and patient home medications list prior to surgery/procedure/anesthetic and documented any changes. Performed airway and anesthesia risk assessments. Anesthesia Type Anesthesia Type: MAC Anesthesia Focused Assessment* Airway Assessment Mouth opens: >3 cm Mallampati Score: II Focused Labs Anesthesia Preop lab: CBC WBC 10.4 K/mm3 (4.4-11.0) 05/30/21 15:20 05/30/21 RBC 4.66 M/mm3 (4.2-5.4) 05/30/21 15:20 05/30/21 Hgb 13.8 g/dL (12.0-15.0) 05/30/21 15:20 05/30/21 Hct 41.8 % (37-47) 05/30/21 15:20 05/30/21 Plt Count 299 K/mm3 (150-450) 05/30/21 15:20 05/30/21 CHEMISTRY Potassium 4.2 mmol/L (3.5-5.1) 05/30/21 15:20 05/30/21 Sodium 135 mmol/L (136-145) L 05/30/21 15:20 05/30/21 BUN 18 mg/dL (7-18) 05/30/21 15:20 05/30/21 Creatinine 0.68 mg/dL (0.55-1.02) 05/30/21 15:20 05/30/21 Glucose 89 mg/dL (74-106) 05/30/21 15:20 05/30/21 COAG Urine Test Negative Negative 05/30/21 14:30 05/30/21 Pre-Assessment Diagnosis/Proposed Procedure Planned Operative Procedure(s): HYSTEROSCOPY D&C POLYPECTOMY FIBROID RESECTION IUD INSERTION Anesthesia History 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 When Was Last Pacemaker Check QUESTION #4 FULL TEXT: You/Your Family Experience fever (hyperthermia) with Anesthesia Last Oral Intake Last Oral intake: Last Oral Intake NPO since Meds taken in AM with sips of water? 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 Female Yes 10/22/24 15:34 HX of Motion Sickness No 10/22/24 15:34 HX of N/V After Surgery No 10/22/24 15:34 Non-Smoker Yes 10/22/24 15:34 Duration of Surgery greater No 10/22/24 15:34 than 60 minutes Number of Risk Factors 2 10/22/24 15:34 PONV Score Moderate Risk 10/22/24 15:34 Height & Weight Height & Weight: Anesthesia: Height & Weight Height 5 ft 8 in 10/30/24 09:44 Weight: 100.244 kg 10/30/24 09:44 Respiratory Assessment Respiratory Assessment - silvering department supervisor: Respiratory Tract Infection Hx - silvering department supervisor Hx Respiratory Tract Infection No 10/22/24 15:34 STOP Sleep Apnea STOP Sleep Apnea - silvering department supervisor: STOP Sleep Apnea - silvering department supervisor Hx Hypertension No 10/22/24 15:34 Hx Sleep Apnea No 10/22/24 15:34 CPAP BIPAP Do you snore loudly (louder Yes 10/22/24 15:34 than talking or can be heard Do you often feel tired/ Yes 10/22/24 15:34 fatigued/ sleepy during daytime? Has anyone observed you stop No 10/22/24 15:34 breathing during sleep? STOP Results Positive 10/22/24 15:34 QUESTION #5 FULL TEXT : Do you snore loudly (louder than talking or can be heard through closed doors)? 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 Specify any problems Hx of Preganancy in last 3 No 10/22/24 15:34 Months Nurse Filling Out Transfusion DSCHRIBER 10/22/24 15:34 & Questions: Date: 10/22/24 10/22/24 15:34 Time: 15:35 10/22/24 15:34 Patient unable to answer at this time (ie. confused, unrespo /Reproduction History /Reproductive History - silvering department supervisor: /Reproductive Hx- silvering department supervisor Hx Now No 10/22/24 15:34 Gestational Age (in weeks): EDC: Hx Hx Para Hx Section SAB No 10/22/24 15:34 PFSH Medical History Back pain History of edema History of echocardiogram Metal foreign body in head Wears hearing aid Wears glasses Depression Fatty liver Seizures Non-smoker AVM (arteriovenous malformation) Home Medications ?Medication ?Instructions ?Recorded ?Last Taken ?Type phenytoin sodium extended 100 mg 200 mg PO Q12H Unknown History capsule venlafaxine 75 mg capsule,extended 75 mg PO DAILY 05/27 12/18 Unknown History release 24 hr cholecalciferol (vitamin D3) 10 10 mcg PO DAILY Unknown History mcg (400 unit) capsule (Vitamin D3) multivitamin-ferrous 1 tab PO DAILY 10/22/24 Unkn own History fumarate-folic acid 18 mg-400 mcg tablet (Complete Multivitamin-Multimineral) Allergy/AdvReac Type Severity Reaction Status Date / Time No Known Allergies Allergy Verified 10/31/24 12:51 Surgical History History of tonsillectomy H/O brain surgery Social History Smoking Status: Never smoker alcohol intake: never Review of Systems (Anesthesia) ROS Narrative System reviewed and no additional complaints, except as documented.
[2024-10-31 12:51] LABS: Internal QC Validated? YES +Cl - CLEAR BKGD; Pregnancy, Urine Negative Negative
[2024-10-31] MEDS: Lidocaine 1% /Epi 1:100 (20ml) 20 ML Vial (14:20)
--- NOTE | 2024-10-31 14:35 | EMB_PTH ---
PATIENT: BRYAN VASQUEZ LOC: [facility] [place] U#:[id number] AGE/SX: 49/F ROOM: RE10/31/[address]: Dr. Tona Stephenson DO : 1975 BED: DIS: 10/31/2024 SPEC #: [id number] RECD: 10/31/24 17:25 STATUS: EULOGIO CLAUDIA #: [id number] [place]: 10/31/24 14:[address]: Tona Stephenson DEPT: SURGICAL PATHOLOGY RECD BY: Anali Bird ENTERED: 11/03/24 08:26 SP TYPE: ENDOM BX/C RYAN DR: Dr. Nika Hernandez MD Tissues: Endometrium, NOS Procedures: Surgery Specimen Level IV HEADER OPERATION: Hysteroscopy, D&C, polypectomy, fibroid resection PRE-OP DIAGNOSIS: Endometrial polyp, uterine fibroid TISSUE SUBMITTED: Endometrial curettings and polyp MICROSCOPIC DIAGNOSIS Endometrium, polyp, curettage: * Fragments of benign endometrial polyp. * Disordered proliferative endometrium, scant benign endocervical mucosa. MICROSCOPIC DESCRIPTION Slides are reviewed. GROSS DESCRIPTION Received in fixative is one container labeled with the patient's name and designated Endometrial curettings and polyp. The specimen consists of multiple fragments of brown- ware spongy soft tissue that measure 2 x 1 x 0.5cm in aggregate. Also present in a mesh bag are multiple fragments of ware rubbery soft tissue that measure 3 x 1.5 x 0.6cm in aggregate. TS3 11/03/2024 Cassette summary: 1- Brown-ware spongy soft tissue 2-3 Ware rubbery tissue from bag CPT: 50755
--- NOTE | 2024-10-31 14:39 | PCM.DC ---
Discharge Instructions Diet Discharge Diet: No restrictions DC O2, CPAP, BIPAP needs Home O2 Discharge instructions: No Dressing / Incision Discharge Activity: May Drive (Once you are more than 24 hours out from surgery) and May Shower (Once you are more than 24 hours out from surgery) May resume sexual activity in: 1 week (Nothing in the vagina and no soaking in water for 1 week) Weight Bearing Status: Weight bearing as tolerated Lifting Restrictions: None Additional Activity Instructions:: I did not place the IUD in the uterus. You do not need an IUD check in 4-6 weeks Dressing / Incision Call your doctor if you observe: Fever of 101 or Higher, Coldness, Increased Pain, Numbness or Tingling, Inability to urinate, Inability to have a bowel movement, Using more than 1 pad per hour, Shortness of breath, Dizziness, Swelling in the ankles, Chest pain, Increased palpitations (irregular heartbeat), Calf discomfort and Uncontrolled pain Follow Up Care Please Follow Up With: Tona Stephenson DO When: 1 week post op. I did not place the IUD in the uterus. You do not need an IUD check in 4-6 weeks Test Results: Test results from this visit will be discussed in further detail at your follow-up appointment, if applicable. Discharge Plan Admission Primary Reason for Your Visit: surgery Attending Provider: Tona Stephenson Primary Care Provider: Nika Hernandez Instructions Patient Instructions: Dilation and Curettage Print Language: Ghanaian Discharge Orders/Prescriptions Prescriptions: Continued phenytoin sodium extended 100 MG capsule 200 mg PO Q12H venlafaxine 75 mg capsule,extended release 24hr 75 mg PO DAILY Complete Multivitamin-Mineral 18-400 mg-mcg tablet 1 tab PO DAILY cholecalciferol (vitamin D3) [Vitamin D3] 10 mcg (400 unit) capsule 10 mcg PO DAILY Referrals / Follow Up: Nika Hernandez MD [Primary Care Provider] - Disposition Disposition (needs filled in before D/C Order can be placed): Home, Self Care
--- NOTE | 2024-10-31 14:42 | PCM.OPRPT ---
Problems Associated Problem List Diagnoses (1) DUB (dysfunctional uterine bleeding): (2) Endometrial polyp: Operative Report (Standard) Operative Information Date of Procedure: 10/31/24 Pre-Operative Diagnosis: DUB, endometrial polyp Post-Operative Diagnosis: As above Surgery/Procedure Performed: Hysteroscopy, polypectomy, D&C small business banking officer: No Type of Anesthesia: MAC RN Documented Start/Stop Times: Operation Date: 10/31/24 14:35 Case Time Into Pre-Op 10/31/24 12:27 Out of Pre-Op 10/31/24 13:57 Anesthesia Start 10/31/24 14:00 Into Room 10/31/24 14:00 Procedure Start 10/31/24 14:17 Procedure End 10/31/24 14:35 Anesthesia End 10/31/24 14:40 Out of Room 10/31/24 14:40 Into Recovery 10/31/24 14:44 Into Phase II Recovery 10/31/24 15:03 Out of Recovery 10/31/24 15:03 Out of Phase II 10/31/24 15:31 Procedure Start Time: 14:17 Procedure Stop Time: 14:35 Select all DRAINS/GRAFTS/IMPLANTS that apply: None Special Medications: None Estimated Blood Loss: < 20 mL Fluids Replaced: 600 cc fluid deficit Specimen collected: Yes Description of specimen(s) removed: Endometrial polyp Endometrial curettings Description of surgery: The patient was taken to the operating room where MAC anesthesia was found to be adequate. She was prepped and draped in the dorsal lithotomy position using yellowfin stirrups. A weighted speculum was placed in the vagina to expose the cervix. The anterior lip of the cervix was grasped with a single-tooth tenaculum. 10 mL of local was injected circumferentially in the cervix. The cervix was serially dilated to accommodate the Symphion hysteroscope. The Symphion hysteroscope was advanced into the uterus, and normal saline was used as distention media. Bilateral tubal ostia were visualized. 1 endometrial polyp was noted arising from the fundus of the uterus. The resection device of the Symphion was used to resect the endometrial polyp. No further polyps were noted. No submucosal fibroids were noted within the cavity of the uterus. No endocervical lesions were noted. The endometrium was otherwise atrophic appearing. The hysteroscope was then removed. A sharp curettage was performed for scant amount of tissue. The endometrial curettings and endometrial polyp were sent to pathology for review. All instruments were removed from the vagina and a vaginal sweep was performed. Instrument, sponge, needle counts were correct and the patient was taken to the recovery room in stable condition. Surgical Findings: 1 endometrial polyp was noted at the fundus of the uterus Thin/atrophic appearing endometrium otherwise Enlarged uterus that sounded to 11 cm Complications Complications: No Admit VTE Documentation VTE Present on Admission: No VTE Mechan Device Prophylaxis: SCD's
--- NOTE | 2024-10-31 14:48 | PCM.POST.ANE ---
Anesthesia: Postop Eval I Current Vital Signs Temperature: 97.1 F Pulse Rate: 82 Blood Pressure: 119/65 Respiratory Rate: 16 Pulse Ox: 99 Oxygen Delivery Method: Room Air Assessment Airway patent: Yes Spontaneous unlabored respirations: Yes Mental status: Awake and Calm nausea: No Vomiting: No Anesthesia Complication: No Fluid Hydration Crystalloid volume administer (ml): 10 Total IV fluid infused: 10 Progress Note Anesthesia document: Postop Eval 1 completed: Yes
--- NOTE | 2024-10-31 14:54 | POSTOPAN2_ITS ---
Anesthesia Postop Eval I Sum Postop Eval Completion status Anesthesia document: Postop Eval 1 completed: Yes Anesthesia Postop Eval I Summary Anesthesia Postop Eval I Summary: Anesthesia Postop Eval I: Assessment Summary Airway patent Yes 10/31/24 14:49 RESIDENT [email or web address] Spontaneous unlabored Yes 10/31/24 14:49 RESIDENT ASSISTANT [email or web address] respirations Mental status Awake,Calm 10/31/24 14:49 RESIDENT ASSISTANT [email or web address] nausea No 10/31/24 14:49 RESIDENT ASSISTANT [email or web address] Vomiting No 10/31/24 14:49 RESIDENT ASSISTANT [email or web address] Anesthesia Postop Eval I: Fluid Summary Crystalloid volume administer 10 10/31/24 14:49 RESIDENT ASSISTANT [email or web address].[email or web address] (ml) Colloids volume administered ( ml) Blood Product volume administered (ml) Total IV fluid infused 10 10/31/24 14:49 RESIDENT ASSISTANT [email or web address] Anesthesia Postop Eval I: Summary Notes Anesthesia Complication No 10/31/24 14:49 RESIDENT ASSISTANT [email or web address] Anesthesia Complication Comment: Post-operative progress note Anesthesia: Postop Eval II Evaluation Mental status: Awake Pain Level: 0 nausea: No Vomiting: No
--- NOTE | 2024-10-31 14:54 | PCM.POSTANE2 ---
Anesthesia Postop Eval I Sum Postop Eval Completion status Anesthesia document: Postop Eval 1 completed: Yes Anesthesia Postop Eval I Summary Anesthesia Postop Eval I Summary: Anesthesia Postop Eval I: Assessment Summary Airway patent Yes 10/31/24 14:49 [email or web address] Spontaneous unlabored Yes 10/31/24 14:49 [email or web address] respirations Mental status Awake,Calm 10/31/24 14:49 [email or web address] nausea No 10/31/24 14:49 [email or web address] Vomiting No 10/31/24 14:49 [email or web address] Anesthesia Postop Eval I: Fluid Summary Crystalloid volume administer 10 10/31/24 14:49 [email or web address] (ml) Colloids volume administered ( ml) Blood Product volume administered (ml) Total IV fluid infused 10 10/31/24 14:49 [email or web address] Anesthesia Postop Eval I: Summary Notes Anesthesia Complication No 10/31/24 14:49 [email or web address] Anesthesia Complication Comment: Post-operative progress note Anesthesia: Postop Eval II Evaluation Mental status: Awake Pain Level: 0 nausea: No Vomiting: No
== END 2024-10-31 15:31 | disposition home or self-care (01) ==
LOC: SDC 12:23 → AC 12:24
PROVIDERS: Anesthesiology; PCP Internal Medicine; Referring Provider Obstetrics & Gynecology; Visit Provider Obstetrics & Gynecology
PROC: 0UB98ZZ Excision of Uterus, Via Natural or Artificial Opening Endoscopic (ICD-10-PCS; CPT 58558; principal; 2024-10-31 14:20)
DX: N93.8 Other specified abnormal uterine and vaginal bleeding (principal); N84.0 Polyp of corpus uteri
CPT/HCPCS: 58558; 00952; 81025; 88305; A4216; J2405